=== PATIENT | male | born 1955 | race Caucasian/White ===

== ENCOUNTER → 2022-12-03 | Outpatient (CLI) | payer BC ==
[~2022-12-03] VITALS: Ht 175.3 cm; Wt 90.0 kg
[2022-12-03] VITALS (21 sets, daily range): BP systolic 127–176; BP diastolic 72–102; PULSE 71–105; TEMP 97.9
[~2022-12-03] MED LIST: FLOMAX 0.40.4 MG/CAP PO; GLUCOPHAGE500 MG/TAB PO; HCTZ 25MG TAB25 MG PO; LOTENSIN40 MG PO; NORVASC 10MG10 MG PO; NOVOLIN 70/30 710 ML SQ; NOVOLIN R100 U/ML SQ; PRILOSEC 20MG20 MG PO; TOPROL XL 25MG25 MG PO; TYLENOL 500MG500 MG PO; ULTRAM 50MG TAB50 MG PO; ZOFRAN 4MG T4 MG/TAB PO
== END ==
LOC: COL.RAD 07:28
DX: R59.0 Localized enlarged lymph nodes (principal)